=== PATIENT | female | born 1970 | race Two or more races ===

== ENCOUNTER 2016-08-30 10:40 | Emergency (ER) | payer SELFPAY ==
[~2016-08-30] VITALS: Ht 160 cm; Wt 102.1 kg
[2016-08-30 13:09] LABS: BILIRUBIN,URINE NEGATIVE (NEG); GLUCOSE,URINE NEGATIVE (NEG); NITRITE,URINE NEGATIVE (NEG); PROTEIN,URINE NEGATIVE (NEG-TRACE); UROBILINOGEN,URINE 0.2 mg/dL (0.2 mg/dL)
[2016-08-30 13:22] LABS: BACTERIA,URINE FEW /HPF (0-FEW); RBC,URINE 0 /HPF (0-2); SQUAMOUS EPITHELIAL CELL,UR MOD /LPF; WBC,URINE OCC /HPF (0-4)
[2016-08-30] MEDS ORDERED: IV NORMAL SALINE 1000ML BAG 1,000 ML IV SCH (13:24)
[2016-08-30] MEDS ORDERED: FENTANYL PF 100 MCG/2 ML VIAL. IV PRN (13:30)
[2016-08-30 13:31] LABS: BASO # 0.1 x10^3/uL (0.0-0.2); BASO % 1 % (0-3); EOS % 19 % (0-3); HEMATOCRIT 41.6 % (36.0-47.0); HEMOGLOBIN 13.8 g/dL (12.0-15.5); LYMPH # 3.2 x10^3/uL (1.0-4.8); LYMPH % 23 % (24-48); MEAN CORPUSCULAR HEMOGLOBIN 30 pg (25-35); MEAN CORPUSCULAR HGB CONC 33 g/dL (31-37); MEAN CORPUSCULAR VOLUME 90 fL (79-100); MONO % 6 % (0-9); NEUT % 53 % (31-73); PLATELET COUNT 300 x10^3/uL (140-400); RED BLOOD COUNT 4.64 x10^6/uL (3.50-5.40); RED CELL DISTRIBUTION WIDTH 14.4 % (11.5-14.5); WHITE BLOOD COUNT 14.2 x10^3/uL (4.0-11.0)
--- NOTE | 2016-08-30 13:33 | ED.ADGEN ---
Past Medical History Past Medical History: No Pertinent History Past Surgical History: No Surgical History Alcohol Use: None Drug Use: None Adult General Chief Complaint Chief Complaint: ABDOMINAL PAIN HPI HPI Patient is a 46 year old woman, with no significant past medical history, who presents to the to the emergency department with complaint of abdominal pain that began yesterday. Patient states the pain is located in her lower abdomen, radiates up to her upper abdomen, states that it is a pressure that feels like "something is exploding" out of her abdomen. States it is worse with urination at times, denies any vomiting or nausea, denies any chest pain or shortness of breath, denies any diarrhea, last bowel movement was this morning and was normal. Denies a sick contacts or exposures. No fevers or chills. States she has back pain that comes and goes, but she's had back pain for the past several months. Denies any injuries, any recent travel or surgery, any similar symptoms previously. No weakness numbness or tingling. She has not taken any medication for the pain at home. Review of Systems Review of Systems Constitutional: Denies fever or chills. [] Eyes: Denies change in visual acuity. [] HENT: Denies nasal congestion or sore throat. [] Respiratory: Denies cough or shortness of breath. [] Cardiovascular: Denies chest pain or edema. [] GI: Abdominal pain, progressively worsening since last night. No diarrhea, no vomiting. No bloody stools or bloody emesis. : Denies dysuria. [] Musculoskeletal: Denies back pain or joint pain. [] Integument: Denies rash. [] Neurologic: Denies headache, focal weakness or sensory changes. [] Endocrine: Denies polyuria or polydipsia. [] Lymphatic: Denies swollen glands. [] Psychiatric: Denies depression or anxiety. [] Current Medications Current Medications Current Medications Medications (Trade) Dose Ordered Sig/Davion Start Time Stop Time Status Last Admin Dose Admin Fentanyl Citrate 25 mcg 25 mcg PRN Q15MIN PRN 08/30/16 13:30 08/31/16 13:29 08/30/16 13:52 25 MCG Info (Do NOT chart on this entry -- for MONITORING) 1 each PRN DAILY PRN 08/30/16 14:15 09/01/16 14:14 Iohexol (Omnipaque 300 Mg/ml) 75 ml 1X ONCE 08/30/16 14:15 08/30/16 14:16 DC 08/30/16 14:32 75 ML Ondansetron HCl (Zofran) 4 mg 1X ONCE 08/30/16 14:15 08/30/16 14:16 DC 08/30/16 13:49 4 MG Sodium Chloride (Iv Sodium Chloride 0.9% 1000ml Bag) 1,000 ml @ 1,000 mls/hr Q1H 08/30/16 13:24 08/30/16 14:23 DC 08/30/16 13:47 1,000 MLS/HR Allergies Allergies Allergies Coded Allergies Type Severity Reaction Last Updated Verified No Known Drug Allergies 08/30/16 No Physical Exam Physical Exam Constitutional: Well developed, obese, no acute distress, non-toxic appearance. [] HENT: Normocephalic, atraumatic, bilateral external ears normal, oropharynx moist, no oral exudates, nose normal. [] Eyes: PERRLA, EOMI, conjunctiva normal, no discharge. [] Neck: Normal range of motion, no tenderness, supple, no stridor. [] Cardiovascular:Heart rate regular rhythm, no murmur, S1, S2, rubs or gallops. [] Lungs & Thorax: Bilateral breath sounds clear to auscultation, no wheezing, rhonchi, rales. No chest wall crepitus or tenderness. [] Abdomen: Bowel sounds normal, obese, soft, patient with tenderness diffusely, although she states it is worse in the lower abdomen, no masses, no pulsatile masses. [] Skin: Warm, dry, no erythema, no rash. [] Back: No tenderness, no CVA tenderness. [] Extremities: No tenderness, no cyanosis, no clubbing, ROM intact, no edema. [] Neurologic: Alert and oriented X 3, normal motor function, normal sensory function, no focal deficits noted. [] Psychologic: Affect normal, judgement normal, mood normal. [] Current Patient Data Vital Signs Vital Signs Date Time Temp Pulse Resp B/P Pulse Ox O2 Delivery O2 Flow Rate FiO2 08/30/16 16:20 66 139/71 98 Room Air 08/30/16 13:52 16 08/30/16 12:38 96.3 96.3 Lab Values Laboratory Tests Test 08/30/16 11:58 08/30/16 12:57 08/30/16 13:00 POC Urine HCG, Qualitative Hcg negative (Negative) Urine Collection Type Unknown Urine Color Yellow Urine Clarity Clear Urine pH 5.0 Urine Specific [place] 1.015 Urine Protein Negativemg/dL (NEG-TRACE) Urine Glucose (UA) Negativemg/dL (NEG) Urine Ketones (Stick) Negativemg/dL (NEG) Urine Blood Negative (NEG) Urine Nitrite Negative (NEG) Urine Bilirubin Negative (NEG) Urine Urobilinogen Dipstick 0.2mg/dL (0.2 mg/dL) Urine Leukocyte Esterase Negative (NEG) Urine RBC 0/HPF (0-2) Urine WBC Occ/HPF (0-4) Urine Squamous Epithelial Cells Mod/LPF Urine Bacteria Few/HPF (0-FEW) Urine Mucus Mod/LPF White Blood Count 14.2x10^3/uL (4.0-11.0) H Red Blood Count 4.64x10^6/uL (3.50-5.40) Hemoglobin 13.8g/dL (12.0-15.5) Hematocrit 41.6% (36.0-47.0) Mean Corpuscular Volume 90fL (79-100) Mean Corpuscular Hemoglobin 30pg (25-35) Mean Corpuscular Hemoglobin Concent 33g/dL (31-37) Red Cell Distribution Width 14.4% (11.5-14.5) Platelet Count 300x10^3/uL (140-400) Neutrophils (%) (Auto) 53% (31-73) Lymphocytes (%) (Auto) 23% (24-48) L Monocytes (%) (Auto) 6% (0-9) Eosinophils (%) (Auto) 19% (0-3) H Basophils (%) (Auto) 1% (0-3) Neutrophils # (Auto) 7.5x10^3uL (1.8-7.7) Lymphocytes # (Auto) 3.2x10^3/uL (1.0-4.8) Monocytes # (Auto) 0.8x10^3/uL (0.0-1.1) Eosinophils # (Auto) 2.6x10^3/uL (0.0-0.7) H Basophils # (Auto) 0.1x10^3/uL (0.0-0.2) Sodium Level 143mmol/L (136-145) Potassium Level 4.3mmol/L (3.5-5.1) Chloride Level 105mmol/L (98-107) Carbon Dioxide Level 30mmol/L (21-32) Anion Gap 8 (6-14) Blood Urea Nitrogen 14mg/dL (7-20) Creatinine 0.8mg/dL (0.6-1.0) Estimated GFR (Cockcroft-Gault) 76.9 BUN/Creatinine Ratio 18 (6-20) Glucose Level 83mg/dL (70-99) Calcium Level 8.9mg/dL (8.5-10.1) Total Bilirubin 0.5mg/dL (0.2-1.0) Aspartate Amino Transferase (AST) 16U/L (15-37) Alanine Aminotransferase (ALT) 27U/L (14-59) Alkaline Phosphatase 95U/L (46-116) Total Protein 8.8g/dL (6.4-8.2) H Albumin 3.4g/dL (3.4-5.0) Albumin/Globulin Ratio 0.6 (1.0-1.7) L Lipase 106U/L (73-393) Laboratory Tests 08/30/16 13:00 Laboratory Tests 08/30/16 13:00 EKG EKG Not indicated. Radiology/Procedures Radiology/Procedures [] [facility] [address] [place] [address] IMAGING REPORT Signed PATIENT: MATT BRENNAN ACCOUNT: [id number] : 1970 LOCATION: ER AGE: 46 SEX: F EXAM STATUS: REG ER ORD. PHYSICIAN: NIKA MCKEON DO REASON: Abd pain PROCEDURE: CT ABD PELV W/ IV CONTRST ONLY CT scan of the abdomen and pelvis with contrast 08/30/2016 Clinical history: Abdominal pain. Technique: After the intravenous administration of 75 cc of Omnipaque 300 only, contiguous, 5 mm axial sections were obtained through the abdomen and pelvis. One or more of the following individualized dose reduction techniques were utilized for this study: 1. Automated exposure control. 2. Adjustment of the mA and/or kV according to patient size. 3. Use of iterative reconstruction technique. Findings: No previous imaging studies are available for comparison. Images through the lung bases demonstrate mild cardiomegaly. Minimal dependent subsegmental atelectasis is seen bilaterally. A 5.1 cm somewhat poorly defined low-attenuation area is seen. The inferior aspect of the right lobe of the liver. Its CT appearance is nonspecific. It could represent a hemangioma. The spleen, pancreas, adrenal glands and kidneys are within normal limits. The abdominal aorta tapers normally. Mild atherosclerotic calcification of the abdominal aorta is seen. The gallbladder is contracted. No free fluid or free air is seen within the abdomen. There is no evidence of bowel obstruction. The appendix is well-visualized and is within normal limits. Images through the pelvis demonstrate the urinary bladder distended with urine. No adnexal mass is seen. Calcifications are seen within the pelvis consistent with phleboliths. No free fluid is noted. Degenerative changes are seen involving the lower thoracic and throughout the lumbar spine and both hips. Impression: No definite acute abnormality is seen. DICTATED and SIGNED BY: KASSANDRA ASHLEY MD DATE: 08/30/16 1434 CC: NIKA MCKEON DO; NO PCP ~ Course & Med Decision Making Course & Med Decision Making Pertinent Labs and Imaging studies reviewed. (See chart for details) CT abdomen and pelvis obtained along laboratory studies, patient received pain medication. Resting comfortably reevaluation. CT of abdomen and pelvis reveals evidence of distended bladder, otherwise unremarkable. Patient has been voiding without issue in the ED, bladder scan was obtained post would residual was around 325 ML's. No concerning findings for significant urinary retention of the cause of patient's symptoms, urinalysis was negative for infection, laboratory studies are reveal any evidence acutely concerning findings. Patient states that she is feeling better on examination, is relieved with these findings. We discussed follow-up with her primary care provider, she does have a provider although she cannot recall his name at this time, patient was also given resources through [facility] in order to establish follow-up as well. All questions answered of the patient's satisfaction at this time, patient was discharged home in stable condition, with follow-up as stated. Translation was assisted by rich Lopes and Leonila in the ED. Dragon Disclaimer Dragon Disclaimer This electronic medical record was generated, in whole or in part, using a voice recognition dictation system. Departure Impression: Primary Impression: Abdominal pain Disposition: HOME, SELF-CARE Condition: IMPROVED NIKA MCKEON DO Aug 30, 2016 13:33
[2016-08-30 13:45] LABS: CALCIUM 8.9 mg/dL (8.5-10.1); CREATININE 0.8 mg/dL (0.6-1.0); GFR 76.9; POTASSIUM 4.3 mmol/L (3.5-5.1)
[2016-08-30 13:59] LABS: ALBUMIN 3.4 g/dL (3.4-5.0); ALBUMIN/GLOBULIN RATIO 0.6 (1.0-1.7); TOTAL BILIRUBIN 0.5 mg/dL (0.2-1.0); TOTAL PROTEIN 8.8 g/dL (6.4-8.2)
[2016-08-30] MEDS ORDERED: IOHEXOL 300 MG/ML 75 ML VIAL IV ONE (14:15)
[2016-08-30] MEDS ORDERED: CONTRAST GIVEN MC PRN (14:15)
[2016-08-30] MEDS ORDERED: ONDANSETRON PF 4 MG/2 ML VIAL. IV ONE (14:15)
--- NOTE | 2016-08-30 14:46 | RAD ---
CT scan of the abdomen and pelvis with contrast 08/30/2016 Clinical history: Abdominal pain. Technique: After the intravenous administration of 75 cc of Omnipaque 300 only, contiguous, 5 mm axial sections were obtained through the abdomen and pelvis. One or more of the following individualized dose reduction techniques were utilized for this study: 1. Automated exposure control. 2. Adjustment of the mA and/or kV according to patient size. 3. Use of iterative reconstruction technique. Findings: No previous imaging studies are available for comparison. Images through the lung bases demonstrate mild cardiomegaly. Minimal dependent subsegmental atelectasis is seen bilaterally. A 5.1 cm somewhat poorly defined low-attenuation area is seen. The inferior aspect of the right lobe of the liver. Its CT appearance is nonspecific. It could represent a hemangioma. The spleen, pancreas, adrenal glands and kidneys are within normal limits. The abdominal aorta tapers normally. Mild atherosclerotic calcification of the abdominal aorta is seen. The gallbladder is contracted. No free fluid or free air is seen within the abdomen. There is no evidence of bowel obstruction. The appendix is well-visualized and is within normal limits. Images through the pelvis demonstrate the urinary bladder distended with urine. No adnexal mass is seen. Calcifications are seen within the pelvis consistent with phleboliths. No free fluid is noted. Degenerative changes are seen involving the lower thoracic and throughout the lumbar spine and both hips. Impression: No definite acute abnormality is seen.
[2016-08-30 16:20] VITALS: BP 139/71
== END 2016-08-30 16:55 | disposition home or self-care (01) ==
LOC: ER 10:40
DX: R10.30 Lower abdominal pain, unspecified (principal); R10.84 Generalized abdominal pain; M54.9 Dorsalgia, unspecified; E66.9 Obesity, unspecified; Z68.39 Body mass index [BMI] 39.0-39.9, adult
CPT/HCPCS: 36415; 74177; 80053; 81001; 81025; 83690; 85027; 96361; 96374; 96375; 99285; J2405; J3010; J7030; Q9967